=== PATIENT | female | born 1935 | race Caucasian/White ===

== ENCOUNTER 2017-03-05 21:47 | Inpatient (IN) | payer MEDICARE, BC ==
[2017-03-05] MEDS ORDERED: SODIUM CHLORIDE 0.9% 1,000 ML IV ONE (22:15)
[2017-03-05] MEDS ORDERED: PANTOPRAZOLE 40 MG/10 ML VIAL IVP STA (22:16)
[2017-03-05] MEDS ORDERED: ONDANSETRON 4 MG/2 ML VIAL IVP PRN (22:16)
--- NOTE | 2017-03-05 22:22 | ED ---
General Adult HPI - General Chief complaint: GI Bleed Stated complaint: GI Bleed Time Seen by Provider: 03/05/17 21:54 Source: patient, EMS, RN notes reviewed, old records reviewed Mode of arrival: EMS Limitations: physical limitation - History of Present Illness Initial comments: This is an 81-year-old female to the ER for evaluation today. This patient presents for evaluation of GI bleed. Patient is accepted and transferred positively. Patient states she is not on blood thinners, has mild abdominal cramping but no discomfort. No nausea or vomiting of blood. Blood is mildly basis stool, sometimes dark no clots and sometimes bright red. Patient does have prior history of colonoscopy - Related Data Home Medications Medication Instructions Recorded Confirmed Allopurinol [Zyloprim] 300 mg PO DAILY 04/15/15 03/05/17 Amitriptyline HCl [Elavil] 10 mg PO HS 04/15/15 03/05/17 Dicyclomine [Bentyl] 20 mg PO TID 04/15/15 03/05/17 Ergocalciferol [Vitamin D2 50,000 unit PO DIRECTED 04/15/15 03/05/17 (DRISDOL)] Gabapentin [Neurontin] 300 mg PO BID@0800,1200 04/15/15 03/05/17 Levothyroxine Sodium [Synthroid] 75 mcg PO DAILY 04/15/15 03/05/17 Nitroglycerin Sl Tabs [Nitrostat] 0.4 mg SUBLINGUAL Q5M PRN 04/15/15 03/05/17 Ranitidine HCl [Zantac] 150 mg PO BID 04/15/15 03/05/17 Simvastatin [Zocor] 40 mg PO HS 04/15/15 03/05/17 Calcium Carbonate/Vitamin D3 1 tab PO DAILY 03/05/17 03/05/17 [Calcium 600-Vit D3 400 Caplet] Cranberry Fruit Concentrate 450 mg PO DAILY 03/05/17 03/05/17 [Cranberry] Furosemide [Lasix] 40 mg PO DAILY 03/05/17 03/05/17 Insulin Glargine,Hum.rec.anlog 25 unit SQ HS@1900 03/05/17 03/05/17 [Toujeo Solostar] Linagliptin [Tradjenta] 5 mg PO DAILY 03/05/17 03/05/17 Magnesium Oxide [Mag-Ox] 250 mg PO DAILY 03/05/17 03/05/17 Pioglitazone [Actos] 30 mg PO DAILY 03/05/17 03/05/17 Previous Rx's Medication Instructions Recorded Metoprolol Tartrate [Lopressor] 25 mg PO BID #60 tab 04/17/15 Allergies Allergy/AdvReac Type Severity Reaction Status Date / Time azithromycin [From Zithromax] Allergy Unknown Verified 03/05/17 22:29 docosanol [From Abreva] Allergy Unknown Verified 03/05/17 22:29 esomeprazole magnesium Allergy Unknown Verified 03/05/17 22:29 [From Vimovo] meperidine HCl [From Demerol] Allergy Unknown Verified 03/05/17 22:29 naproxen [From Vimovo] Allergy Unknown Verified 03/05/17 22:29 Review of Systems ROS Statement: Those systems with pertinent positive or pertinent negative responses have been documented in the HPI. ROS Other: All systems not noted in ROS Statement are negative. Past Medical History Past Medical History: Atrial Fibrillation, Chest Pain / Angina, Diabetes Mellitus, GERD/Reflux, GI Bleed, Hyperlipidemia, Hypertension, Musculoskeletal Disorder, Osteoarthritis (OA) Additional Past Medical History / Comment(s): Calculus Kidney, Duodenal ulcer unspec, hypercholesterolemia, Osteoporosis, hypothyroidism, Cataract removal lens implants in both eyes, chronic renal insufficiency. History of Any Multi-Drug Resistant Organisms: None Reported Past Surgical History: No Surgical Hx Reported Additional Past Surgical History / Comment(s): Surgery for post menopausal symptoms, cataract removal Past Anesthesia/Blood Transfusion Reactions: No Reported Reaction Past Psychological History: No Psychological Hx Reported Smoking Status: Never smoker Past Alcohol Use History: None Reported Past Drug Use History: None Reported General Exam Limitations: physical limitation General appearance: alert, in no apparent distress Head exam: Present: atraumatic, normocephalic, normal inspection Eye exam: Present: normal appearance, PERRL, EOMI. Absent: scleral icterus, conjunctival injection, periorbital swelling ENT exam: Present: normal exam, mucous membranes moist Neck exam: Present: normal inspection. Absent: tenderness, meningismus, lymphadenopathy Respiratory exam: Present: normal lung sounds bilaterally. Absent: respiratory distress, wheezes, rales, rhonchi, stridor Cardiovascular Exam: Present: regular rate, normal rhythm, normal heart sounds. Absent: systolic murmur, diastolic murmur, rubs, gallop, clicks GI/Abdominal exam: Present: soft, normal bowel sounds. Absent: distended, tenderness, guarding, rebound, rigid Extremities exam: Present: normal inspection, full ROM, normal capillary refill. Absent: tenderness, pedal edema, joint swelling, calf tenderness Back exam: Present: normal inspection Neurological exam: Present: alert, oriented X3, CN II-XII intact Psychiatric exam: Present: normal affect, normal mood Skin exam: Present: warm, dry, intact, normal color. Absent: rash Course Vital Signs 03/05/17 21:52 Temperature 98.5 F Pulse Rate 72 Respiratory 19 Rate Blood Pressure 162/77 O2 Sat by Pulse 100 Oximetry - Reevaluation(s) Reevaluation #1: 03/05/17 23:06 Transfer paperwork is thoroughly reviewed Medical Decision Making - Medical Decision Making 81 female ER for GI bleed. Patient will be admitted for evaluation by GI, monitor hemoglobin. Patient currently is being transfused. Vital signs are normal and stable Disposition Clinical Impression: Gastrointestinal hemorrhage Disposition: ADMITTED IP TO THIS HOSP Condition: Fair
[2017-03-06 00:10] LABS: Anisocytosis Slight; Basophils % (A) 0 %; CH 28.6; CHCM 29.9; Eosinophils # (A) 0.2 k/uL (0-0.7); Eosinophils % (A) 2 %; HCT 32.9 % (34.0-46.0); HDW 2.58; HGB 9.7 gm/dL (11.4-16.0); Hypochromasia Marked; Luc # (Auto) 0.05; Luc % (Auto) 1; Lymphocytes # (A) 1.5 k/uL (1.0-4.8); Lymphocytes % (A) 14 %; MCH 28.3 pg (25.0-35.0); MCHC 29.4 g/dL (31.0-37.0); MCV 96.2 fL (80.0-100.0); Macrocytosis Slight; Monocytes # (A) 0.4 k/uL (0-1.0); Monocytes % (A) 4 %; Neutrophils # (A) 8.4 k/uL (1.3-7.7); Neutrophils % (A) 80 %; RBC 3.42 m/uL (3.80-5.40); RDW 17.7 % (11.5-15.5); WBC 10.6 k/uL (3.8-10.6); WBC (Perox) 11.02
[2017-03-06 00:20] LABS: Potassium 4.4 mmol/L (3.5-5.1)
[2017-03-06] MEDS ORDERED: MORPHINE SULFATE 4 MG/ML SYRINGE IVP PRN (00:33)
[2017-03-06] MEDS ORDERED: cloNIDine 0.1 MG/24HR PATCH 1 PATCH PATCH TRANSDERM SCH (00:45)
[2017-03-06 05:58] LABS: Glucose,Whole Blood 153 mg/dL (75-99)
[2017-03-06] MEDS: INSULIN ASPART 100 UNIT/ML 1 ML 10 ML VIAL SQ SCH ×4 (06:17→21:26)
[2017-03-06 06:26] LABS: Anisocytosis Slight; Basophils % (A) 0 %; CH 28.5; CHCM 30.1; Eosinophils # (A) 0.1 k/uL (0-0.7); Eosinophils % (A) 2 %; HCT 27.4 % (34.0-46.0); HDW 2.61; HGB 8.7 gm/dL (11.4-16.0); Hypochromasia Moderate; Luc # (Auto) 0.09; Luc % (Auto) 1; Lymphocytes # (A) 1.6 k/uL (1.0-4.8); Lymphocytes % (A) 19 %; MCH 30.2 pg (25.0-35.0); MCHC 31.6 g/dL (31.0-37.0); MCV 95.5 fL (80.0-100.0); Mean Platelet Volume 7.9; Monocytes # (A) 0.4 k/uL (0-1.0); Monocytes % (A) 5 %; Neutrophils # (A) 6.3 k/uL (1.3-7.7); Neutrophils % (A) 74 %; RBC 2.87 m/uL (3.80-5.40); RDW 17.5 % (11.5-15.5); WBC 8.5 k/uL (3.8-10.6); WBC (Perox) 8.97
[2017-03-06] MEDS: PANTOPRAZOLE 40 MG/10 ML VIAL IVP SCH ×2 (08:59→21:35)
--- NOTE | 2017-03-06 09:39 | P.CONS ---
History of Present Illness - Reason for Consult Consult date: 03/06/17 GI bleed Requesting physician: Rashad Gonzalez - History of Present Illness 81-year-old female with a history of carcinoid tumor of the lung, hypertension, dyslipidemia chest pain chronic back pain and duodenal ulcerations. Presented to the ER yesterday from [facility] with acute GI bleed. She underwent colonoscopy screening with Dr. Lorenzo with findings of sigmoid diverticular bleeding. This information was communicated by family. Dictated colonoscopy report was not available at time of this dictation. Patient's family states she started passing gross amount of burgundy-colored clots 2 days ago. No episodes of hematemesis or melena. Mild intermittent abdominal cramping. Bowel movements darker red burgundy in color without clot yesterday none through the night. Denies excessive usage of aspirin and NSAIDs. No alcohol or anticoagulant medications. She received 1 unit of blood at [facility] prior to transfer. Family was under the impression surgical consultation was needed. Admission hemoglobin 9.7. MCV 96. Platelet 246. BUN 29. Currently 1.2. Hemoglobin this morning 8.7. Previous hemoglobin 2-3 years ago between the average range of 11-13. Review of medical records patient underwent EGD in 2010 for epigastric pain with findings of severe duodenitis and multiple duodenal ulcerations in the bulb post bulbar area and descending duodenum. Follow-up EGD several months later previously noted duodenal ulcerations had completely healed. Review of Systems Constitutional: Denies fever, chills, sweats, weight gain, or loss. HEENT: Negative for migraines, blurred vision or loss, earaches, drainage, tinnitus, oral mucosal lesions, dysphagia, or odynophagia. CARDIAC: Negative for chest pain, arrhythmias, or palpitation. RESPIRATORY: Lung carcinoid tumor. Hypertension. Hyperlipidemia. Negative for shortness of breath, hemoptysis, cough, or sputum production. GI: See HPI for pertinent findings. : Negative for hematuria, urgency, frequency, polyuria, or dysuria. GYNc: Denies possibility of . Negative vaginal discharge. MUSCULOSKELETAL: Negative for muscle aches, swelling, arthritis, and arthralgias. NEUROLOGIC: Negative for stroke or TIA. ENDOCRINE: Negative for thyroid problems. SKIN: Negative for rash or itching. PSYCHIATRIC: Negative history for depression and anxiety Past Medical History Past Medical History: Atrial Fibrillation, Chest Pain / Angina, Diabetes Mellitus, GERD/Reflux, GI Bleed, Hyperlipidemia, Hypertension, Musculoskeletal Disorder, Osteoarthritis (OA) Additional Past Medical History / Comment(s): Calculus Kidney, Duodenal ulcer unspec, hypercholesterolemia, Osteoporosis, hypothyroidism, Cataract removal lens implants in both eyes, chronic renal insufficiency. History of Any Multi-Drug Resistant Organisms: None Reported Past Surgical History: No Surgical Hx Reported Additional Past Surgical History / Comment(s): Surgery for post menopausal symptoms, cataract removal Past Anesthesia/Blood Transfusion Reactions: No Reported Reaction Past Psychological History: No Psychological Hx Reported Smoking Status: Never smoker Past Alcohol Use History: None Reported Past Drug Use History: None Reported - Past Family History Father Family Medical History: Cancer, Myocardial Infarction ([place]) Additional Family Medical History / Comment(s): thyroid ca Mother Family Medical History: Cancer, Coronary Artery Disease (CAD), CVA/TIA, Diabetes Mellitus, Hypertension Additional Family Medical History / Comment(s): breast ca Medications and Allergies Home Medications Medication Instructions Recorded Confirmed Type Allopurinol [Zyloprim] 300 mg PO DAILY 04/15/15 03/05/17 History Amitriptyline HCl [Elavil] 10 mg PO HS 04/15/15 03/05/17 History Dicyclomine [Bentyl] 20 mg PO TID 04/15/15 03/05/17 History Ergocalciferol [Vitamin D2 50,000 unit PO DIRECTED 04/15/15 03/05/17 History (DRISDOL)] Gabapentin [Neurontin] 300 mg PO BID@0800,1200 04/15/15 03/05/17 History Levothyroxine Sodium [Synthroid] 75 mcg PO DAILY 04/15/15 03/05/17 History Nitroglycerin Sl Tabs [Nitrostat] 0.4 mg SUBLINGUAL Q5M PRN 04/15/15 03/05/17 History Ranitidine HCl [Zantac] 150 mg PO BID 04/15/15 03/05/17 History Simvastatin [Zocor] 40 mg PO HS 04/15/15 03/05/17 History Metoprolol Tartrate [Lopressor] 25 mg PO BID #60 tab 04/17/15 03/05/17 Rx Calcium Carbonate/Vitamin D3 1 tab PO DAILY 03/05/17 03/05/17 History [Calcium 600-Vit D3 400 Caplet] Cranberry Fruit Concentrate 450 mg PO DAILY 03/05/17 03/05/17 History [Cranberry] Furosemide [Lasix] 40 mg PO DAILY 03/05/17 03/05/17 History Insulin Glargine,Hum.rec.anlog 25 unit SQ HS@1900 03/05/17 03/05/17 History [Toujeo Solostar] Linagliptin [Tradjenta] 5 mg PO DAILY 03/05/17 03/05/17 History Magnesium Oxide [Mag-Ox] 250 mg PO DAILY 03/05/17 03/05/17 History Pioglitazone [Actos] 30 mg PO DAILY 03/05/17 03/05/17 History Allergies Allergy/AdvReac Type Severity Reaction Status Date / Time azithromycin [From Zithromax] Allergy Rash/Hives Verified 03/05/17 23:42 docosanol [From Abreva] Allergy blisters Verified 03/05/17 23:42 esomeprazole magnesium Allergy Blisters Verified 03/05/17 23:42 [From Vimovo] naproxen [From Vimovo] Allergy Blisters Verified 03/05/17 23:42 meperidine HCl [From Demerol] AdvReac Vomiting Verified 03/05/17 23:42 Physical Exam Vitals: Vital Signs Temp Pulse Pulse Resp BP BP Pulse Ox 03/06/17 05:52 84 18 154/69 99 03/06/17 04:00 98 F 80 16 135/79 97 03/06/17 01:57 180/92 03/06/17 01:03 176/92 03/06/17 00:00 98.1 F 78 16 186/79 94 L 03/05/17 21:52 98.5 F 72 19 162/77 100 Intake and Output 03/05/17 03/06/17 03/06/17 22:59 06:59 14:59 Intake Total 800 Balance 800 Intake: IV 800 Sodium Chloride 0.9% 1, 800 000 ml @ 100 mls/hr IV . Q10H ONE Rx#:[id number] Other: # Voids 3 Weight 97.522 kg 97.3 kg General appearance: The patient is alert, oriented, in no acute distress. HET: Head is normocephalic and atraumatic. Pupils are equal and reactive. Oropharynx is clear without lesions. Neck: Supple without lymphadenopathy. Trachea midline. Heart: S1 S2. Regular rate and rhythm. Lungs: No crackles or wheezes are heard. Abdomen: Soft, mild tenderness to left lower abdomen, nondistended with bowel sounds. No peritoneal signs. No palpable organomegaly or masses. Extremities: Normal skin color and turgor. No cyanosis, rash, ulceration, clubbing, or edema. Radial and pedal pulses are 2/4 bilaterally. Neurological: No focal deficits. Strength and sensation are grossly intact. Results CBC & Chem 7: 03/06/17 05:28 03/05/17 23:54 Labs: Abnormal Lab Results - Last 24 Hours (Table) 03/05/17 03/05/17 03/06/17 Range/Units 23:54 23:54 05:28 RBC 3.42 L 2.87 L (3.80-5.40) m/uL Hgb 9.7 L 8.7 L (11.4-16.0) gm/dL Hct 32.9 L 27.4 L (34.0-46.0) % MCHC 29.4 L (31.0-37.0) g/dL RDW 17.7 H 17.5 H (11.5-15.5) % Neutrophils # 8.4 H (1.3-7.7) k/uL Chloride 110 H (98-107) mmol/L BUN 29 H (7-17) mg/dL Creatinine 1.20 H (0.52-1.04) mg/dL Glucose 142 H (74-99) mg/dL POC Glucose (mg/dL) (75-99) mg/dL 03/06/17 Range/Units 05:55 RBC (3.80-5.40) m/uL Hgb (11.4-16.0) gm/dL Hct (34.0-46.0) % MCHC (31.0-37.0) g/dL RDW (11.5-15.5) % Neutrophils # (1.3-7.7) k/uL Chloride (98-107) mmol/L BUN (7-17) mg/dL Creatinine (0.52-1.04) mg/dL Glucose (74-99) mg/dL POC Glucose (mg/dL) 153 H (75-99) mg/dL Assessment and Plan (1) Gastrointestinal hemorrhage Narrative/Plan: Suspected diverticular bleed based on reported history from family of colonoscopy findings yesterday at [facility] Current Visit: Yes Status: Acute Code(s): K92.2 - GASTROINTESTINAL HEMORRHAGE, UNSPECIFIED SNOMED Code(s): 97322976 (2) Acute blood loss anemia Current Visit: Yes Status: Acute Code(s): D62 - ACUTE POSTHEMORRHAGIC ANEMIA SNOMED Code(s): 686572493 Plan: 1. CBC monitoring. Surgical consult. 2. Protonix 40 mg IV twice daily. 3. Nothing by mouth except medications until evaluated by surgery. Thank you for this kind referral and the opportunity to participate in the care of your patient. This consultation was discussed with Dr. Robledo. The impression and plan of care have been directed as dictated.
[2017-03-06 11:32] LABS: Glucose,Whole Blood 136 mg/dL (75-99)
[2017-03-06] MEDS ORDERED: NITROGLYCERIN SL TABS 0.4 MG TAB SUBLINGUAL PRN (11:55)
[2017-03-06 12:11] LABS: Anisocytosis Slight; Basophils % (A) 0 %; Eosinophils # (A) 0.1 k/uL (0-0.7); Eosinophils % (A) 2 %; HCT 26.4 % (34.0-46.0); HDW 2.77; HGB 8.1 gm/dL (11.4-16.0); Hypochromasia Slight; Luc # (Auto) 0.09; Luc % (Auto) 1; Lymphocytes # (A) 1.6 k/uL (1.0-4.8); Lymphocytes % (A) 20 %; MCH 28.9 pg (25.0-35.0); MCHC 30.6 g/dL (31.0-37.0); MCV 94.4 fL (80.0-100.0); Mean Platelet Volume 7.4; Monocytes # (A) 0.4 k/uL (0-1.0); Monocytes % (A) 4 %; Neutrophils # (A) 5.9 k/uL (1.3-7.7); Neutrophils % (A) 73 %; RDW 16.4 % (11.5-15.5); WBC 8.1 k/uL (3.8-10.6); WBC (Perox) 8.34
--- NOTE | 2017-03-06 12:26 | XR ---
EXAMINATION TYPE: XR chest 1V DATE OF EXAM: 03/06/2017 COMPARISON: 04/17/2015 HISTORY: Atelectasis TECHNIQUE: Single frontal view of the chest is obtained. FINDINGS: There is redemonstration of cardiomegaly in comparison to the prior exam. Mild pulmonary v ascular congestion and interstitial edema are seen. No gross pleural effusion. Slight eventration of the right hemidiaphragm. No sizable pneumothorax. Degenerative changes of the visualized cervical and thoracic spine, acromioclavicular joints and right glenohumeral joint are moderate. IMPRESSION: Mild pulmonary vascular congestion and interstitial edema in combination with cardiomega ly likely relate to underlying decompensated congestive heart failure.
[2017-03-06] MEDS: GABAPENTIN 300 MG CAP PO SCH (13:16)
--- NOTE | 2017-03-06 13:40 | P.GSCN ---
History of Present Illness Consult date: 03/06/17 Reason for Consult: Abdominal Pain GI bleed, History of present illness: This is an 81-year-old female who was transferred from [facility] to be seen for left lower quadrant abdominal pain with 5 episodes of large maroon colored bloody stool with clots. Per daughter report. Patient is a history of 2 weeks prior had an episode where she had a small maroon color bloody stool. Patient stated that she did notify Dr. Hoffmann GI service who did set patient up to have a colonoscopy done on March 27. Patient stated that she has not had any prior episodes of rectal bleeding. Patient does give a history of having been treated for peptic ulcer disease. Patient underwent on March 05 at [facility] EGD which a polyp was removed from the stomach. Additionally a colonoscopy was done in which the patient's daughter states there was too much blood in the colon could not be adequately visualized. Since being admitted from [facility] there is been no further episodes of rectal bleeding. Patient was started on a diet did develop left lower cramping hemoglobin hgb today 8.1. Hemoglobin at admission was 9.7 it was noted the patient had received 1 unit of packed red blood cells at [facility] prior to being transferred Reviewing medical records from GI consult indicate the patient did undergo an EGD in 2010 for epigastric pain findings showed severe duodenitis and multiple duodenal ulcerations in the bulb and descending duodenum. A follow-up EGD in 2010 showed duodenal ulceration completely healed Patient does have a history of carcinoid tumor of the lung, hypertension, dyslipidemia, chronic lower back pain, duodenal ulcers, peptic ulcer disease. Patient has no history of alcohol or tobacco use. Denies any NSAID use Review of Systems Essentially unremarkable except as mentioned in the present illness Past Medical History Past Medical History: Atrial Fibrillation, Chest Pain / Angina, Diabetes Mellitus, GERD/Reflux, GI Bleed, Hyperlipidemia, Hypertension, Musculoskeletal Disorder, Osteoarthritis (OA) Additional Past Medical History / Comment(s): Calculus Kidney, Duodenal ulcer unspec, hypercholesterolemia, Osteoporosis, hypothyroidism, Cataract removal lens implants in both eyes, chronic renal insufficiency. History of Any Multi-Drug Resistant Organisms: None Reported Past Surgical History: No Surgical Hx Reported Additional Past Surgical History / Comment(s): Surgery for post menopausal symptoms, cataract removal Past Anesthesia/Blood Transfusion Reactions: No Reported Reaction Past Psychological History: No Psychological Hx Reported Smoking Status: Never smoker Past Alcohol Use History: None Reported Past Drug Use History: None Reported - Past Family History Father Family Medical History: Cancer, Myocardial Infarction ([place]) Additional Family Medical History / Comment(s): thyroid ca Mother Family Medical History: Cancer, Coronary Artery Disease (CAD), CVA/TIA, Diabetes Mellitus, Hypertension Additional Family Medical History / Comment(s): breast ca Medications and Allergies Home Medications Medication Instructions Recorded Confirmed Type Allopurinol [Zyloprim] 300 mg PO DAILY 04/15/15 03/05/17 History Amitriptyline HCl [Elavil] 10 mg PO HS 04/15/15 03/05/17 History Dicyclomine [Bentyl] 20 mg PO TID 04/15/15 03/05/17 History Ergocalciferol [Vitamin D2 50,000 unit PO DIRECTED 04/15/15 03/05/17 History (DRISDOL)] Gabapentin [Neurontin] 300 mg PO BID@0800,1200 04/15/15 03/05/17 History Levothyroxine Sodium [Synthroid] 75 mcg PO DAILY 04/15/15 03/05/17 History Nitroglycerin Sl Tabs [Nitrostat] 0.4 mg SUBLINGUAL Q5M PRN 04/15/15 03/05/17 History Ranitidine HCl [Zantac] 150 mg PO BID 04/15/15 03/05/17 History Simvastatin [Zocor] 40 mg PO HS 04/15/15 03/05/17 History Metoprolol Tartrate [Lopressor] 25 mg PO BID #60 tab 04/17/15 03/05/17 Rx Calcium Carbonate/Vitamin D3 1 tab PO DAILY 03/05/17 03/05/17 History [Calcium 600-Vit D3 400 Caplet] Cranberry Fruit Concentrate 450 mg PO DAILY 03/05/17 03/05/17 History [Cranberry] Furosemide [Lasix] 40 mg PO DAILY 03/05/17 03/05/17 History Insulin Glargine,Hum.rec.anlog 25 unit SQ HS@1900 03/05/17 03/05/17 History [Toujeo Solostar] Linagliptin [Tradjenta] 5 mg PO DAILY 03/05/17 03/05/17 History Magnesium Oxide [Mag-Ox] 250 mg PO DAILY 03/05/17 03/05/17 History Pioglitazone [Actos] 30 mg PO DAILY 03/05/17 03/05/17 History Allergies Allergy/AdvReac Type Severity Reaction Status Date / Time azithromycin [From Zithromax] Allergy Rash/Hives Verified 03/05/17 23:42 docosanol [From Abreva] Allergy blisters Verified 03/05/17 23:42 esomeprazole magnesium Allergy Blisters Verified 03/05/17 23:42 [From Vimovo] naproxen [From Vimovo] Allergy Blisters Verified 03/05/17 23:42 meperidine HCl [From Demerol] AdvReac Vomiting Verified 03/05/17 23:42 Surgical - Exam Vital Signs Temp Pulse Resp BP Pulse Ox 98.5 F 72 19 162/77 100 03/05/17 21:52 03/05/17 21:52 03/05/17 21:52 03/05/17 21:52 03/05/17 21:52 GENERAL APPEARANCE: 81 year old female patient sitting up in bed pleasant cooperative oriented 3 reports after eating to develop left lower quadrant cramping with a nausea sensation VITAL SIGNS: Reviewed HEENT: Head is normocephalic and atraumatic. Pupils are equal and reactive. The nares are patent. Oropharynx is clear without lesions. NECK: Supple without lymphadenopathy. Traches midline. HEART: S1, S2. Regular rate and rhythm. No murmur noted denying chest pain LUNGS: No crackles or wheezes are heard. Adequate air movement bilaterally on room air ABDOMEN: Soft, slight tenderness left lower quadrant nondistended with good bowel sounds. No peritoneal signs. No palpable organomegaly or masses. EXTREMITIES: Normal skin color and turgor. No cyanosis, rash, ulceration, clubbing or edema. Radial pedal pulses are 2/4 bilaterally. NEUROLOGICAL: No focal deficits. Strength and sensation are grossly intact. Results - Labs 03/06/17 11:54 03/05/17 23:54 Abnormal Lab Results - Last 24 Hours (Table) 03/05/17 03/05/17 03/06/17 Range/Units 23:54 23:54 05:28 RBC 3.42 L 2.87 L (3.80-5.40) m/uL Hgb 9.7 L 8.7 L (11.4-16.0) gm/dL Hct 32.9 L 27.4 L (34.0-46.0) % MCHC 29.4 L (31.0-37.0) g/dL RDW 17.7 H 17.5 H (11.5-15.5) % Neutrophils # 8.4 H (1.3-7.7) k/uL Chloride 110 H (98-107) mmol/L BUN 29 H (7-17) mg/dL Creatinine 1.20 H (0.52-1.04) mg/dL Glucose 142 H (74-99) mg/dL POC Glucose (mg/dL) (75-99) mg/dL 03/06/17 03/06/17 03/06/17 Range/Units 05:55 11:30 11:54 RBC 2.80 L (3.80-5.40) m/uL Hgb 8.1 L (11.4-16.0) gm/dL Hct 26.4 L (34.0-46.0) % MCHC 30.6 L (31.0-37.0) g/dL RDW 16.4 H (11.5-15.5) % Neutrophils # (1.3-7.7) k/uL Chloride (98-107) mmol/L BUN (7-17) mg/dL Creatinine (0.52-1.04) mg/dL Glucose (74-99) mg/dL POC Glucose (mg/dL) 153 H 136 H (75-99) mg/dL Diabetes panel 03/05/17 Range/Units 23:54 Sodium 140 (137-145) mmol/L Potassium 4.4 (3.5-5.1) mmol/L Chloride 110 H (98-107) mmol/L Carbon Dioxide 22 (22-30) mmol/L BUN 29 H (7-17) mg/dL Creatinine 1.20 H (0.52-1.04) mg/dL Glucose 142 H (74-99) mg/dL Calcium 9.0 (8.4-10.2) mg/dL Calcium panel 03/05/17 Range/Units 23:54 Calcium 9.0 (8.4-10.2) mg/dL Pituitary panel 03/05/17 Range/Units 23:54 Sodium 140 (137-145) mmol/L Potassium 4.4 (3.5-5.1) mmol/L Chloride 110 H (98-107) mmol/L Carbon Dioxide 22 (22-30) mmol/L BUN 29 H (7-17) mg/dL Creatinine 1.20 H (0.52-1.04) mg/dL Glucose 142 H (74-99) mg/dL Calcium 9.0 (8.4-10.2) mg/dL Adrenal panel 03/05/17 Range/Units 23:54 Sodium 140 (137-145) mmol/L Potassium 4.4 (3.5-5.1) mmol/L Chloride 110 H (98-107) mmol/L Carbon Dioxide 22 (22-30) mmol/L BUN 29 H (7-17) mg/dL Creatinine 1.20 H (0.52-1.04) mg/dL Glucose 142 H (74-99) mg/dL Calcium 9.0 (8.4-10.2) mg/dL Assessment and Plan Assessment: Impression History of duodenal ulceration per prior EGDs Per history of recent colonoscopy done 03-05 findings reported sigmoid diverticular bleed Acute blood loss anemia suspect GI source necessitating transfusion 1 unit packed blood cells given prior to transfer from [facility] gastrointestinal hemorrhage suspect due to diverticular bleed based on history from family colonoscopy done 1115 Hypertension essential A recent EGD done March 05 Type 2 diabetes insulin Plan Nothing by mouth except for ice chips and meds for now will re-eval IV fluid for hydration Repeat hemoglobin monitor Further surgical recommendations pending Obtain the records from the colonoscopy and EGD done in [facility] March 05 will review Continue protonix 40mg iv bid The above impression and plan of care have been discussed and directed by signing physician. Alma Delia Dorantes nurse practitioner acting as scribe for signing physician.
[2017-03-06] MEDS ORDERED: LEVOFLOXACIN 500MG-D5W PMX 500 MG in DEXTROSE/WATER 1 100ML.BAG IVPB SCH (14:00)
--- NOTE | 2017-03-06 14:49 | P.HPIM ---
History of Present Illness 86-year-old female was transferred from [facility] after a colonoscopy. Patient presented to [facility] with the 5-6 episodes of dark stools, I do not have any official reports of colonoscopy are not available at this point of time apparently this colonoscopy was done by general surgeon there and had the quite a bit of blood in the colon because of which her colon was not visualized was transferred here for surgical evaluation and, colectomy as per the patient's family. Patient did not have any dark stools since admission patient's hemoglobin came down from 9.78.1 can be from the bleed from yesterday patient is not having any acute bleed at this point of time aberrantly some polyps were removed as well we were trying to obtain medical records from [facility] at this time. Surgery was consulted discuss his case with surgical nurse practitioner. Review of Systems REVIEW OF SYSTEMS: CONSTITUTIONAL: No fever, no malaise, no fatigue. HEENT: No recent visual problems or hearing problems. Denied any sore throat. CARDIOVASCULAR: No chest pain, orthopnea, PND, no palpitations, no syncope. PULMONARY: No shortness of breath, no cough, no hemoptysis. GASTROINTESTINAL: As mentioned in HPI NEUROLOGICAL: No headaches, no weakness, no numbness. HEMATOLOGICAL: Denies any bleeding or petechiae. GENITOURINARY: Denies any burning micturition, frequency, or urgency. MUSCULOSKELETAL/RHEUMATOLOGICAL: Denies any joint pain, swelling, or any muscle pain. ENDOCRINE: Denies any polyuria or polydipsia. The rest of the 14-point review of systems is negative. Past Medical History Past Medical History: Atrial Fibrillation, Chest Pain / Angina, Diabetes Mellitus, GERD/Reflux, GI Bleed, Hyperlipidemia, Hypertension, Musculoskeletal Disorder, Osteoarthritis (OA) Additional Past Medical History / Comment(s): Calculus Kidney, Duodenal ulcer unspec, hypercholesterolemia, Osteoporosis, hypothyroidism, Cataract removal lens implants in both eyes, chronic renal insufficiency. History of Any Multi-Drug Resistant Organisms: None Reported Past Surgical History: No Surgical Hx Reported Additional Past Surgical History / Comment(s): Surgery for post menopausal symptoms, cataract removal Past Anesthesia/Blood Transfusion Reactions: No Reported Reaction Past Psychological History: No Psychological Hx Reported Smoking Status: Never smoker Past Alcohol Use History: None Reported Past Drug Use History: None Reported - Past Family History Father Family Medical History: Cancer, Myocardial Infarction (OR) Additional Family Medical History / Comment(s): thyroid ca Mother Family Medical History: Cancer, Coronary Artery Disease (CAD), CVA/TIA, Diabetes Mellitus, Hypertension Additional Family Medical History / Comment(s): breast ca Medications and Allergies Home Medications Medication Instructions Recorded Confirmed Type Allopurinol [Zyloprim] 300 mg PO DAILY 04/15/15 03/05/17 History Amitriptyline HCl [Elavil] 10 mg PO HS 04/15/15 03/05/17 History Dicyclomine [Bentyl] 20 mg PO TID 04/15/15 03/05/17 History Ergocalciferol [Vitamin D2 50,000 unit PO DIRECTED 04/15/15 03/05/17 History (DRISDOL)] Gabapentin [Neurontin] 300 mg PO BID@0800,1200 04/15/15 03/05/17 History Levothyroxine Sodium [Synthroid] 75 mcg PO DAILY 04/15/15 03/05/17 History Nitroglycerin Sl Tabs [Nitrostat] 0.4 mg SUBLINGUAL Q5M PRN 04/15/15 03/05/17 History Ranitidine HCl [Zantac] 150 mg PO BID 04/15/15 03/05/17 History Simvastatin [Zocor] 40 mg PO HS 04/15/15 03/05/17 History Metoprolol Tartrate [Lopressor] 25 mg PO BID #60 tab 04/17/15 03/05/17 Rx Calcium Carbonate/Vitamin D3 1 tab PO DAILY 03/05/17 03/05/17 History [Calcium 600-Vit D3 400 Caplet] Cranberry Fruit Concentrate 450 mg PO DAILY 03/05/17 03/05/17 History [Cranberry] Furosemide [Lasix] 40 mg PO DAILY 03/05/17 03/05/17 History Insulin Glargine,Hum.rec.anlog 25 unit SQ HS@1900 03/05/17 03/05/17 History [Toujeo Solostar] Linagliptin [Tradjenta] 5 mg PO DAILY 03/05/17 03/05/17 History Magnesium Oxide [Mag-Ox] 250 mg PO DAILY 03/05/17 03/05/17 History Pioglitazone [Actos] 30 mg PO DAILY 03/05/17 03/05/17 History Allergies Allergy/AdvReac Type Severity Reaction Status Date / Time azithromycin [From Zithromax] Allergy Rash/Hives Verified 03/05/17 23:42 docosanol [From Abreva] Allergy blisters Verified 03/05/17 23:42 esomeprazole magnesium Allergy Blisters Verified 03/05/17 23:42 [From Vimovo] naproxen [From Vimovo] Allergy Blisters Verified 03/05/17 23:42 meperidine HCl [From Demerol] AdvReac Vomiting Verified 03/05/17 23:42 Physical Exam Vitals: Vital Signs Temp Pulse Pulse Resp BP BP BP 03/06/17 11:28 97.9 F 78 16 176/77 03/06/17 08:50 97.8 F 75 18 160/70 03/06/17 05:52 84 18 154/69 03/06/17 04:00 98 F 80 16 135/79 03/06/17 01:57 180/92 03/06/17 01:03 176/92 03/06/17 00:00 98.1 F 78 16 186/79 03/05/17 21:52 98.5 F 72 19 162/77 Pulse Ox 03/06/17 11:28 97 03/06/17 08:50 03/06/17 05:52 99 03/06/17 04:00 97 03/06/17 01:57 03/06/17 01:03 03/06/17 00:00 94 L 03/05/17 21:52 100 Intake and Output 03/05/17 03/06/17 03/06/17 22:59 06:59 14:59 Intake Total 800 Balance 800 Intake: IV 800 Sodium Chloride 0.9% 1, 800 000 ml @ 100 mls/hr IV . Q10H ONE Rx#:[id number] Other: # Voids 3 1 Weight 97.522 kg 97.3 kg PHYSICAL EXAMINATION: GENERAL: The patient is alert and oriented x3, not in any acute distress. Well developed, well nourished. HEENT: Pupils are round and equally reacting to light. EOMI. No scleral icterus. Does have conjunctival pallor. Normocephalic, atraumatic. No pharyngeal erythema. No thyromegaly. CARDIOVASCULAR: S1 and S2 present. No murmurs, rubs, or gallops. PULMONARY: Chest is clear to auscultation, no wheezing or crackles. ABDOMEN: Soft, nontender, nondistended, normoactive bowel sounds. No palpable organomegaly. MUSCULOSKELETAL: No joint swelling or deformity. EXTREMITIES: No cyanosis, clubbing, or pedal edema. NEUROLOGICAL: Gross neurological examination did not reveal any focal deficits. SKIN: No rashes. Results CBC & Chem 7: 03/06/17 11:54 03/05/17 23:54 Labs: Abnormal Lab Results - Last 24 Hours (Table) 03/05/17 03/05/17 03/06/17 Range/Units 23:54 23:54 05:28 RBC 3.42 L 2.87 L (3.80-5.40) m/uL Hgb 9.7 L 8.7 L (11.4-16.0) gm/dL Hct 32.9 L 27.4 L (34.0-46.0) % MCHC 29.4 L (31.0-37.0) g/dL RDW 17.7 H 17.5 H (11.5-15.5) % Neutrophils # 8.4 H (1.3-7.7) k/uL Chloride 110 H (98-107) mmol/L BUN 29 H (7-17) mg/dL Creatinine 1.20 H (0.52-1.04) mg/dL Glucose 142 H (74-99) mg/dL POC Glucose (mg/dL) (75-99) mg/dL 03/06/17 03/06/17 03/06/17 Range/Units 05:55 11:30 11:54 RBC 2.80 L (3.80-5.40) m/uL Hgb 8.1 L (11.4-16.0) gm/dL Hct 26.4 L (34.0-46.0) % MCHC 30.6 L (31.0-37.0) g/dL RDW 16.4 H (11.5-15.5) % Neutrophils # (1.3-7.7) k/uL Chloride (98-107) mmol/L BUN (7-17) mg/dL Creatinine (0.52-1.04) mg/dL Glucose (74-99) mg/dL POC Glucose (mg/dL) 153 H 136 H (75-99) mg/dL Thrombosis Risk Factor Assmnt - Choose All That Apply Any of the Below Risk Factors Present?: Yes Each Risk Factor Represents 3 Points: Age 75 years or older Thrombosis Risk Factor Assessment Total Risk Factor Score: 3 Thrombosis Risk Factor Assessment Level: Moderate Risk Assessment and Plan Plan: #1 diverticular bleed: Patient does not have any active bleed, surgery was consulted but I believe is appropriate plan would be monitoring her overnight and she has bleeding again and further surgical intervention is appropriate I believe. If not patient will follow with the Gastro-enterology and surgery as an outpatient and will be discharged tomorrow. #2 history of atrial fibrillation patient is probably not an anti-coagulation, beta jm will be continued. #3 type 2 diabetes mellitus: Continue with the home regimen of insulin hold off on oral hypoglycemic agents, monitor blood sugars #4 gases within reflux disease #5 hyperlipidemia #6 hypertension #7 osteoarthritis For above-mentioned chronic medical problems patient will be continued on home medications which is appropriate
[2017-03-06] MEDS: metroNIDAZOLE 250 MG TABLET PO SCH ×2 (15:41→21:34)
[2017-03-06] MEDS: SODIUM CHLORIDE 0.9% 1,000 ML IV SCH ×2 (15:42→21:35)
[2017-03-06 17:20] LABS: Glucose,Whole Blood 215 mg/dL (75-99)
[2017-03-06 18:56] LABS: Anisocytosis Slight; Basophils % (A) 0 %; CH 28.9; CHCM 30.7; Eosinophils # (A) 0.1 k/uL (0-0.7); Eosinophils % (A) 2 %; HCT 26.7 % (34.0-46.0); HDW 2.71; HGB 8.2 gm/dL (11.4-16.0); Hypochromasia Moderate; Luc # (Auto) 0.08; Luc % (Auto) 1; Lymphocytes # (A) 1.4 k/uL (1.0-4.8); Lymphocytes % (A) 17 %; MCH 29.1 pg (25.0-35.0); MCHC 30.7 g/dL (31.0-37.0); MCV 94.8 fL (80.0-100.0); Mean Platelet Volume 7.3; Monocytes # (A) 0.4 k/uL (0-1.0); Monocytes % (A) 5 %; Neutrophils # (A) 6.1 k/uL (1.3-7.7); Neutrophils % (A) 75 %; RBC 2.82 m/uL (3.80-5.40); RDW 16.5 % (11.5-15.5); WBC 8.2 k/uL (3.8-10.6); WBC (Perox) 8.01
[2017-03-06] MEDS ORDERED: INSULIN DETEMIR 100 UNIT/ML 10 ML VIAL SQ SCH ×2 (19:00→21:00)
[2017-03-06] MEDS ORDERED: ATORVASTATIN 20 MG TAB PO SCH (21:00)
[2017-03-06] MEDS ORDERED: AMITRIPTYLINE HCL 10 MG TAB PO SCH (21:00)
[2017-03-06 21:35] LABS: Glucose,Whole Blood 130 mg/dL (75-99)
[2017-03-06] MEDS: METOPROLOL TARTRATE 25 MG TAB PO SCH (21:40)
[2017-03-07 06:29] LABS: Anisocytosis Slight; Basophils % (A) 0 %; CH 29.1; CHCM 30.8; Eosinophils # (A) 0.1 k/uL (0-0.7); Eosinophils % (A) 1 %; HCT 27.5 % (34.0-46.0); HDW 2.71; HGB 8.4 gm/dL (11.4-16.0); Hypochromasia Moderate; Luc # (Auto) 0.09; Luc % (Auto) 1; Lymphocytes # (A) 1.2 k/uL (1.0-4.8); Lymphocytes % (A) 13 %; MCH 29.1 pg (25.0-35.0); MCHC 30.7 g/dL (31.0-37.0); MCV 94.9 fL (80.0-100.0); Mean Platelet Volume 7.5; Monocytes # (A) 0.5 k/uL (0-1.0); Monocytes % (A) 6 %; Neutrophils % (A) 78 %; RDW 16.4 % (11.5-15.5); WBC 8.9 k/uL (3.8-10.6); WBC (Perox) 9.21
[2017-03-07] MEDS ORDERED: LEVOTHYROXINE 75 MCG TAB PO SCH (06:30)
[2017-03-07 06:36] LABS: Glucose,Whole Blood 171 mg/dL (75-99)
[2017-03-07] MEDS: INSULIN ASPART 100 UNIT/ML 1 ML 10 ML VIAL SQ SCH (06:40)
[2017-03-07] MEDS: metroNIDAZOLE 250 MG TABLET PO SCH (06:41)
[2017-03-07 07:39] LABS: Potassium 4.2 mmol/L (3.5-5.1); Total Bilirubin 0.3 mg/dL (0.2-1.3); Total Protein 5.2 g/dL (6.3-8.2)
--- NOTE | 2017-03-07 08:48 | P.DS ---
Providers Date of admission: 03/05/17 22:21 Attending physician: Rashad Gonzalez Consults: 03/05/17 22:15 Consult Physician Routine Consulting Provider: Ania Rivera Consult Reason/Comments: gibKnown Do you want consulting provider notified?: Yes 03/06/17 09:04 Consult Physician Routine Consulting Provider: Milton Whittaker Consult Reason/Comments: diverticular bleed Do you want consulting provider notified?: Yes Primary care physician: [facility] Course: 86-year-old female was transferred from [facility] after a colonoscopy. Patient presented to [facility] with the 5-6 episodes of dark stools, I do not have any official reports of colonoscopy are not available at this point of time apparently this colonoscopy was done by general surgeon there and had the quite a bit of blood in the colon because of which her colon was not visualized was transferred here for surgical evaluation and, colectomy as per the patient's family. Patient did not have any dark stools since admission patient's hemoglobin came down from 9.78.1 can be from the bleed from yesterday patient is not having any acute bleed at this point of time aberrantly some polyps were removed as well we were trying to obtain medical records from [facility] at this time. Surgery was consulted discuss his case with surgical nurse practitioner. 03/07/17 Patient doesn't have any more GI bleed, discussed with the Dr. Heart and patient will be discharged today. PHYSICAL EXAMINATION: GENERAL: The patient is alert and oriented x3, not in any acute distress. Well developed, well nourished. HEENT: Pupils are round and equally reacting to light. EOMI. No scleral icterus. Does have conjunctival pallor. Normocephalic, atraumatic. No pharyngeal erythema. No thyromegaly. CARDIOVASCULAR: S1 and S2 present. No murmurs, rubs, or gallops. PULMONARY: Chest is clear to auscultation, no wheezing or crackles. ABDOMEN: Soft, nontender, nondistended, normoactive bowel sounds. No palpable organomegaly. MUSCULOSKELETAL: No joint swelling or deformity. EXTREMITIES: No cyanosis, clubbing, or pedal edema. NEUROLOGICAL: Gross neurological examination did not reveal any focal deficits. SKIN: No rashes. #1 diverticular bleed: #2 history of atrial fibrillation patient is probably not an anti-coagulation, beta jm will be continued. #3 type 2 diabetes mellitus: Continue with the home regimen of insulin hold off on oral hypoglycemic agents, monitor blood sugars #4 gases within reflux disease #5 hyperlipidemia #6 hypertension #7 osteoarthritis Patient Condition at Discharge: Fair Plan - Discharge Summary Discharge Rx Participant: No New Discharge Prescriptions: New traMADol HCL/ACETAMINOPHEN [Ultracet 37.5-325] 1 each PO Q4HR PRN #30 tab PRN Reason: Pain Continue Nitroglycerin Sl Tabs [Nitrostat] 0.4 mg SUBLINGUAL Q5M PRN PRN Reason: Chest Pain Gabapentin [Neurontin] 300 mg PO BID@0800,1200 Ergocalciferol [Vitamin D2 (DRISDOL)] 50,000 unit PO DIRECTED Dicyclomine [Bentyl] 20 mg PO TID Ranitidine HCl [Zantac] 150 mg PO BID Amitriptyline HCl [Elavil] 10 mg PO HS Allopurinol [Zyloprim] 300 mg PO DAILY Simvastatin [Zocor] 40 mg PO HS Levothyroxine Sodium [Synthroid] 75 mcg PO DAILY Metoprolol Tartrate [Lopressor] 25 mg PO BID #60 tab Pioglitazone [Actos] 30 mg PO DAILY Linagliptin [Tradjenta] 5 mg PO DAILY Magnesium Oxide [Mag-Ox] 250 mg PO DAILY Cranberry Fruit Concentrate [Cranberry] 450 mg PO DAILY Calcium Carbonate/Vitamin D3 [Calcium 600-Vit D3 400 Caplet] 1 tab PO DAILY Insulin Glargine,Hum.rec.anlog [Vahid Borjas] 25 unit SQ HS@1900 Discontinued Furosemide [Lasix] 40 mg PO DAILY Discharge Medication List Allopurinol [Zyloprim] 300 mg PO DAILY 04/15/15 [History] Amitriptyline HCl [Elavil] 10 mg PO HS 04/15/15 [History] Dicyclomine [Bentyl] 20 mg PO TID 04/15/15 [History] Ergocalciferol [Vitamin D2 (DRISDOL)] 50,000 unit PO DIRECTED 04/15/15 [ History] Gabapentin [Neurontin] 300 mg PO BID@0800,1200 04/15/15 [History] Levothyroxine Sodium [Synthroid] 75 mcg PO DAILY 04/15/15 [History] Nitroglycerin Sl Tabs [Nitrostat] 0.4 mg SUBLINGUAL Q5M PRN 04/15/15 [History] Ranitidine HCl [Zantac] 150 mg PO BID 04/15/15 [History] Simvastatin [Zocor] 40 mg PO HS 04/15/15 [History] Metoprolol Tartrate [Lopressor] 25 mg PO BID #60 tab 04/17/15 [Rx] Calcium Carbonate/Vitamin D3 [Calcium 600-Vit D3 400 Caplet] 1 tab PO DAILY [History] Cranberry Fruit Concentrate [Cranberry] 450 mg PO DAILY 03/05/17 [History] Insulin Glargine,Hum.rec.anlog [Toujeo Solostar] 25 unit SQ HS@1900 03/05/17 [ History] Linagliptin [Tradjenta] 5 mg PO DAILY 03/05/17 [History] Magnesium Oxide [Mag-Ox] 250 mg PO DAILY 03/05/17 [History] Pioglitazone [Actos] 30 mg PO DAILY 03/05/17 [History] traMADol HCL/ACETAMINOPHEN [Ultracet 37.5-325] 1 each PO Q4HR PRN #30 tab [Rx] Follow up Appointment(s)/Referral(s): Osvaldo Winchester MD [Primary Care Provider] - 3 Days Milton Whittaker MD [STAFF PHYSICIAN] - 3 Days Activity/Diet/Wound Care/Special Instructions: pt has A&D waver program at home - she has daily help for 4hrs a day while her daughter is at work. pt refusing home care at this time. Discharge Disposition: HOME SELF-CARE
[2017-03-07] MEDS ORDERED: ALLOPURINOL 300 MG TAB PO SCH (09:00)
[2017-03-07] MEDS: GABAPENTIN 300 MG CAP PO SCH (09:21)
[2017-03-07] MEDS: PANTOPRAZOLE 40 MG/10 ML VIAL IVP SCH (09:22)
[2017-03-07] MEDS: METOPROLOL TARTRATE 25 MG TAB PO SCH (09:22)
[2017-03-07] MEDS: SODIUM CHLORIDE 0.9% 1,000 ML IV SCH (09:22)
[2017-03-07 10:06] VITALS: BP 130/87; PULSE 83; RESP 20; TEMP 97.6
[2017-03-07] MEDS ORDERED: LEVOFLOXACIN 250MG-D5W PMX 250 MG in DEXTROSE/WATER 1 50ML.BAG IVPB SCH (14:00)
== END 2017-03-07 11:09 | disposition home or self-care (01) | DRG 378 ==
LOC: EC 21:47 → 6SEL 22:21
PROVIDERS: ADMIT Hospitalist; ATTEND Hospitalist
DX: K57.91 Diverticulosis of intestine, part unspecified, without perforation or abscess with bleeding (principal); D62 Acute posthemorrhagic anemia; E11.22 Type 2 diabetes mellitus with diabetic chronic kidney disease; I48.91 Unspecified atrial fibrillation; K21.9 Gastro-esophageal reflux disease without esophagitis; E78.00 Pure hypercholesterolemia, unspecified; M81.0 Age-related osteoporosis without current pathological fracture; Z96.1 Presence of intraocular lens; E03.9 Hypothyroidism, unspecified; I12.9 Hypertensive chronic kidney disease with stage 1 through stage 4 chronic kidney disease, or unspecified chronic kidney disease; N18.9 Chronic kidney disease, unspecified; M19.90 Unspecified osteoarthritis, unspecified site; Z88.1 Allergy status to other antibiotic agents; Z88.8 Allergy status to other drugs, medicaments and biological substances; Z79.4 Long term (current) use of insulin; Z79.899 Other long term (current) drug therapy; Z80.3 Family history of malignant neoplasm of breast; Z82.49 Family history of ischemic heart disease and other diseases of the circulatory system; Z80.8 Family history of malignant neoplasm of other organs or systems; Z83.3 Family history of diabetes mellitus; Z87.11 Personal history of peptic ulcer disease; Z98.41 Cataract extraction status, right eye; Z98.42 Cataract extraction status, left eye
CPT/HCPCS: 71010; 80048; 80053; 83036; 85025; 96360; 99285